=== PATIENT | female | born 2000 | race African-American/Black ===

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

== ENCOUNTER 2018-05-30 16:32 | Outpatient (CLI) | payer MEDICAID ==
[2017-08-02 08:02] VITALS: BMI 28.4
[2018-05-30 17:57] LABS: BASOPHILS 0.1 % (0-2); EOSINOPHILS 1.1 % (0-7); HEMATOCRIT 30.1 % (36.0-48.0); IMMATURE GRANULOCYTES 0.2 % (0-5); LYMPHOCYTES 14.9 % (15-50); MCH 28.3 pg (26.0-34.0); MCHC 33.2 g/dL (31.0-37.0); MCV 85.3 fL (80.0-100.0); NEUTROPHILS 76.7 % (40-80); PLATELET COUNT 138 10x3/uL (130-400); RBC 3.53 10x6/uL (4.00-5.40); RDW 13.9 % (11.5-14.5); WBC 8.1 10x3/uL (4.8-10.8)
[2018-05-30 18:17] LABS: APPEARANCE CLEAR (CLEAR); BILIRUBIN NEGATIVE (NEGATIVE); COLOR YELLOW (YELLOW); GLUCOSE NEGATIVE (NEGATIVE); KETONE NEGATIVE (NEGATIVE); NITRITE NEGATIVE (NEGATIVE); PROTEIN NEGATIVE (NEGATIVE); UROBILINOGEN NORMAL (NORMAL)
[2018-05-30 18:28] LABS: ALBUMIN 2.5 g/dL (3.4-5.0); ALKALINE PHOSPHATASE 55 U/L (46-116); ALT (SGPT) 13 U/L (10-68); BILIRUBIN - TOTAL 0.17 mg/dL (0.2-1.3); CALC OSMOLALITY 271 mosm/kg (275-300); CARBON DIOXIDE 23.8 mmol/L (21.0-32.0); CHLORIDE - SERUM 106 mmol/L (98-107); CREATININE - SERUM 0.6 mg/dL (0.6-1.3); GLUCOSE 80 mg/dL (74-106); POTASSIUM - SERUM 3.4 mmol/L (3.5-5.1); PROTEIN - SERUM 6.3 g/dL (6.4-8.2); SODIUM 138 mmol/L (136-145); UREA NITROGEN 5 mg/dL (7-18); eGFR NON AFRICAN AMERICAN > 90 mL/min (90-120)
== END 2018-05-30 19:18 | disposition home or self-care (01) ==
LOC: D.LDO 16:32
PROVIDERS: Obstetrics & Gynecology
DX: O60.12X0 Preterm labor second trimester with preterm delivery second trimester, not applicable or unspecified (principal); Z3A.20 20 weeks gestation of pregnancy; Z37.1 Single stillbirth

== ENCOUNTER 2018-08-06 19:21 | Inpatient (IN) | payer MEDICAID ==
[~2018-08-06] VITALS: Ht 160 cm; Wt 84.4 kg
[2018-08-06 20:43] LABS: APPEARANCE CLEAR (CLEAR); COLOR YELLOW (YELLOW)
[2018-08-06 20:44] LABS: BILIRUBIN NEGATIVE (NEGATIVE); GLUCOSE NEGATIVE (NEGATIVE); KETONE NEGATIVE (NEGATIVE); NITRITE NEGATIVE (NEGATIVE); PROTEIN NEGATIVE (NEGATIVE); UROBILINOGEN NORMAL (NORMAL)
[2018-08-06 22:51] LABS: HEMATOCRIT 29.5 % (36.0-48.0); HEMOGLOBIN 9.6 g/dL (12-16); MCH 27.3 pg (26.0-34.0); MCHC 32.5 g/dL (31.0-37.0); MCV 83.8 fL (80.0-100.0); MEAN PLATELET VOLUME 10.5 fL (7.4-10.4); RBC 3.52 10x6/uL (4.00-5.40); RDW 13.2 % (11.5-14.5); WBC 7.4 10x3/uL (4.8-10.8)
[2018-08-06 23:16] VITALS: BP 111/65; Ht 160 cm; Wt 84.4 kg
[2018-08-07] VITALS (22 sets, daily range): BP systolic 94–128; BP diastolic 50–69
[2018-08-07 00:24] LABS: UDS - AMPHET NEGATIVE QUAL (NEGATIVE); UDS - BARB NEGATIVE QUAL (NEGATIVE); UDS - BENZO NEGATIVE QUAL (NEGATIVE); UDS - COCAINE NEGATIVE QUAL (NEGATIVE); UDS - OPIATE NEGATIVE QUAL (NEGATIVE); UDS - PCP NEGATIVE QUAL (NEGATIVE); UDS - THC NEGATIVE QUAL (NEGATIVE)
[2018-08-08 04:10] VITALS: BP 95/62
[2018-08-08 06:42] LABS: BASOPHILS 0.1 % (0-2); EOSINOPHILS 0.8 % (0-7); HEMOGLOBIN 7.8 g/dL (12-16); IMMATURE GRANULOCYTES 0.3 % (0-5); LYMPHOCYTES 13.5 % (15-50); MCHC 32.5 g/dL (31.0-37.0); MEAN PLATELET VOLUME 10.4 fL (7.4-10.4); MONOCYTES 5.8 % (2-11); NEUTROPHILS 79.5 % (40-80); PLATELET COUNT 195 10x3/uL (130-400); RBC 2.89 10x6/uL (4.00-5.40); RDW 13.2 % (11.5-14.5)
[2018-08-08 06:44] LABS: WBC 10.1 10x3/uL (4.8-10.8)
[2018-08-08 07:32] LABS: RAPID PLASMA REAGIN Non Reactive (Non Reactive)
[2018-08-08 07:45] VITALS: BP 102/57
[2018-08-08 14:36] VITALS: BP 104/56
[2018-08-08 19:29] VITALS: BP 104/58
[2018-08-09] VITALS: BP 100/61
[2018-08-09 07:40] VITALS: BP 103/53
[2018-08-09] MEDS ORDERED: IBUPROFEN800 MG PO (09:15)
[2018-08-09] MEDS ORDERED: PERCOCET 5-3251 TAB PO (09:15)
[2018-08-09] MEDS ORDERED: FERROUS SULFAT325 MG PO (09:16)
== END 2018-08-09 14:05 | disposition home or self-care (01) | DRG 788 ==
LOC: D.LDO 19:21 → D.LD 22:33 → D.WS 08-07 16:40
PROVIDERS: Obstetrics & Gynecology
PROC: 10D00Z1 Extraction of Products of Conception, Low, Open Approach (ICD-10-PCS; principal; 2018-08-07)
DX: O32.1XX0 Maternal care for breech presentation, not applicable or unspecified (principal); Z3A.37 37 weeks gestation of pregnancy; Z37.0 Single live birth; N83.8 Other noninflammatory disorders of ovary, fallopian tube and broad ligament; O34.219 Maternal care for unspecified type scar from previous cesarean delivery; O99.02 Anemia complicating childbirth

== ENCOUNTER 2019-10-09 14:10 | Outpatient (CLI) | payer MEDICAID ==
[2018-08-06 23:16] VITALS: BMI 33.0
[~2019-10-09 14:10] MED LIST changes: +FERROUS SULFAT325 MG PO; +IBUPROFEN800 MG PO; +PERCOCET 5-3251 TAB PO
[2019-10-09 15:28] LABS: APPEARANCE CLEAR (CLEAR); BILIRUBIN NEGATIVE (NEGATIVE); COLOR YELLOW (YELLOW); GLUCOSE NEGATIVE (NEGATIVE); KETONE NEGATIVE (NEGATIVE); NITRITE NEGATIVE (NEGATIVE); PROTEIN NEGATIVE (NEGATIVE); UROBILINOGEN NORMAL (NORMAL)
== END 2019-10-09 21:16 | disposition home or self-care (01) ==
LOC: D.LDO 14:10
PROVIDERS: ATTEND Obstetrics & Gynecology
DX: O26.899 Other specified pregnancy related conditions, unspecified trimester (principal); Z3A.00 Weeks of gestation of pregnancy not specified; R10.9 Unspecified abdominal pain

== ENCOUNTER 2019-11-27 10:04 | Inpatient (IN) | payer MEDICAID ==
[~2019-11-27] VITALS: Ht 160 cm; Wt 89.4 kg
[~2019-11-27 10:04] MED LIST changes: +TAMIFLU75 MG PO; +ZOFRAN4 MG PO
[2019-11-27 11:02] LABS: HEMATOCRIT 28.3 % (36.0-48.0); HEMOGLOBIN 8.8 g/dL (12-16); MCH 24.6 pg (26.0-34.0); MCHC 31.1 g/dL (31.0-37.0); MCV 79.3 fL (80.0-100.0); MEAN PLATELET VOLUME 9.5 fL (7.4-10.4); RBC 3.57 10x6/uL (4.00-5.40); RDW 14.6 % (11.5-14.5); WBC 7.4 10x3/uL (4.8-10.8)
[2019-11-27 11:18] VITALS: BP 130/62; Ht 160 cm; Wt 89.4 kg
--- NOTE | 2019-11-27 16:00 | NUR ---
RECEIVED PT FROM VIA BED TO ROOM 1219. BED LOCKED AND PLACED IN LOW POSITION. PT C/O PAIN, MOVING ABOUT IN BED. FUNDUS FIRM AT U/1. RUBRA LOCHIA MOD AMT. FEW DIME SIZED CLOTS NOTED ON PERIPAD. NO HEAVY ACTIVE BLEEDING NOTED AT THIS TIME. PERIPADS CHANGED. ABDOMINAL DRESSING DRY WITHOUT DRAINAGE NOTED. PT STATES PAIN OF "8" ON 0-10 PAIN SCALE. URVASHI GARCIA, RECOVERY NURSE CONTINUES AT BEDSIDE. GIVES PT DEMEROL 25 MG IVP AT THIS TIME. PT ENCOURAGED TO RELAX PT ON ELBOWS IN BED, TENSING UP. SR UP X 2. CALL LIGHT IN REACH.
--- NOTE | 2019-11-27 16:13 | NUR ---
DILAUDID NIBBLER OPERATOR STARTED ORDERED. PT INSTRUCTED ON USE OF BUTTON AND MEDICATION. VERBALIZES AND DEMONSTRATES UNDERSTANDING.
[2019-11-27 16:22] VITALS: BP 130/75
--- NOTE | 2019-11-27 16:22 | NUR ---
THIS NURSE ASSUMES CARE OF PT AT THIS TIME. PT STATES PAIN CONTINUES. PT MORE RELAXED AND NOT TENSING UP ON ELBOWS IN BED. VSS. HRRR WITHOUT AUDIBLE MURMUR. BBS CLEAR. BS HYPOACTIVE. ABDOMEN SOFT/DISTENDED PT BREATHING WITH PAIN. ABDOMINAL DRESSING DRY WITHOUT DRAINAGE. PT STATES LEGS CONTNUE NUMB. FUNDUS FIRM AT U/1. RUBRA LOCHIA SMALL AMT. SEVERAL SMALL DIME SIZED CLOTS NOTED ON PERIPAD. CHUX AND PERIPADS CHANGED X 2 ASSISTS. SCDS ON BLE. PUMP ON. SAGASTUME TO GRAVITY DRAINING DARK, YELLOW URINE. PIV SITE CLEAR TO LEFT WRIST. NS WITH PITOCIN AT 125 ML/HR. PT PRESSES METAL TANK BUILDER BUTTON AND LIES BACK IN BED. PT MORE CALM AT THIS TIME. SR UP X 2. CALL LIGHT IN REACH.
[2019-11-27 17:00] VITALS: BP 136/77
[2019-11-27 17:30] VITALS: BP 135/82
--- NOTE | 2019-11-27 17:39 | NUR ---
PT ON PHONE WITH FAMILY. TALKING, SMILING. REPOSITIONS PER SELF UP IN BED. CLEAR LIQUID DIET SERVED.
[2019-11-27 18:00] VITALS: BP 120/75
--- NOTE | 2019-11-27 18:00 | NUR ---
FUNDUS FIRM AT U/2. RUBRA LOCHIA MOD AMT. NO CLOTS NOTED. PERIPADS CHANGED. PT MOVES WELL IN BED PER SELF. FRESH ICE PACK TO INCISION. NO DRAINAGE NOTED TO DRESSING. I/O COMPLETED.
--- NOTE | 2019-11-27 18:27 | NUR ---
PT C/O INCISIONAL PAIN OF "5" ON 0-10 PAIN SCALE. TORADOL 30 MG GIVEN SIVP OVER 2 MINUTES. PT INSTRUCTED ON MED. VERBALIZES UNDERSTANDING.
--- NOTE | 2019-11-27 19:30 | NUR ---
REPORT TAKEN FROM SOCO. PT IS DOING WELL AT THIS TIME. EXPLAINED THAT I WOULD BE IN TO DO ASSESSMENT LATER.
[2019-11-27 20:00] VITALS: BP 121/67
--- NOTE | 2019-11-27 20:00 | NUR ---
PT IS DOING WELL. SHE HAS SM TO MOD LOCHIA AT THIS TIME. SHE HAS NO C/O AT THIS TIME. HEART SOUNDS WNL. LUNGS ARE CLEAR, BOWEL SOUNDS FAINT, FUNDUS FIRM. SHE HAS AN IV IN THE LEFT HAND INFUSING WELL. BABY IS IN THE ROOM AT THIS TIME. SHE IS WORKING ON BREAST FEEDING. SKIN IS WARM AND DRY. INCISION BANDAGE IS INTACT WITH NO DRAINAGED NOTED. PT HAS A SAGASTUME CATHETER DRAINING CONCENTRATED URINE. PT ENCOURAGED TO DRING FLUIDS. FOB IN THE ROOM. VS STABLE.
[2019-11-27 20:47] LABS: BASOPHILS 0.1 % (0-2); EOSINOPHILS 0.1 % (0-7); HEMATOCRIT 33.5 % (36.0-48.0); HEMOGLOBIN 10.5 g/dL (12-16); IMMATURE GRANULOCYTES 0.2 % (0-5); LYMPHOCYTES 9.4 % (15-50); MCH 25.2 pg (26.0-34.0); MCHC 31.3 g/dL (31.0-37.0); MCV 80.5 fL (80.0-100.0); MEAN PLATELET VOLUME 10.4 fL (7.4-10.4); MONOCYTES 5.6 % (2-11); NEUTROPHILS 84.6 % (40-80); PLATELET COUNT 173 10x3/uL (130-400); RBC 4.16 10x6/uL (4.00-5.40); RDW 14.5 % (11.5-14.5)
[2019-11-27 20:55] LABS: WBC 11.5 10x3/uL (4.8-10.8)
--- NOTE | 2019-11-27 22:00 | NUR ---
PT IS RESTING QUIETLY HOLDING BABY. SHE HAS NO C/O. SAGASTUME CONT TO DRAIN WELL.
[2019-11-28] VITALS: BP 117/68
--- NOTE | 2019-11-28 00:10 | NUR ---
PT IS DOING WELL. STILL HAS BABY. NO C/O. SUGGESTED TO PT THAT SHE MAY WANT TO REST WHILE THE BABY WAS SLEEPING INSTEAD OF BEING ON THE PHONE. FOB IN THE ROOM SLEEPING.
--- NOTE | 2019-11-28 02:15 | NUR ---
PT CONT' TO REST. NO C/O AT THIS TIME. PADS CHANGED. LOCHIA MOD AMT.
--- NOTE | 2019-11-28 04:00 | NUR ---
VS TAKEN. NO C/O USING INVESTIGATION CLERK PUMP FREQUESTLY.
[2019-11-28 06:37] LABS: BASOPHILS 0 % (0-2); EOSINOPHILS 0.2 % (0-7); HEMATOCRIT 30.3 % (36.0-48.0); HEMOGLOBIN 9.5 g/dL (12-16); IMMATURE GRANULOCYTES 0.1 % (0-5); LYMPHOCYTES 7.8 % (15-50); MCH 24.7 pg (26.0-34.0); MCHC 31.4 g/dL (31.0-37.0); MCV 78.9 fL (80.0-100.0); MEAN PLATELET VOLUME 9.3 fL (7.4-10.4); MONOCYTES 4.5 % (2-11); NEUTROPHILS 87.4 % (40-80); PLATELET COUNT 145 10x3/uL (130-400); RBC 3.84 10x6/uL (4.00-5.40); RDW 14.6 % (11.5-14.5); WBC 9.5 10x3/uL (4.8-10.8)
[2019-11-28 07:13] LABS: RAPID PLASMA REAGIN Non Reactive (Non Reactive)
--- NOTE | 2019-11-28 07:30 | NUR ---
DR. HERBERT ON UNIT, MD TO ROOM TO SPEAK WITH PT. VERBAL ORDER RECEIVED TO Devan/C SANDRITA SAGASTUME IV, MAY ADVANCE DIET, AND START PO PAIN MEDICATION.
[2019-11-28 10:00] VITALS: BP 114/62
--- NOTE | 2019-11-28 10:00 | NUR ---
TO PT'S ROOM, SAGASTUME CATH DC'D INTACT WITH 900 ML'S EMPTIED OUT OF SAGASTUME BAG, DARK YELLOW URINE. PERICARE DONE WITH WARM WET WASHCLOTHS, LEFT LABIA MAJORA NOTED TO HAVE MINIMAL SWELLING, INTACT. CHUX CHANGED. PT ALSO GIVEN TORADOL 30 MG SIVP, DILUTED WITH 10 CC'S NS. SEE EMAR FOR ALL MEDS ADM BY THIS RN. PT SERVED LARGE GLASS OF ICE WATER. DENIES ALL OTHER NEEDS. SRUP X2, CALL LIGHT AND PHONE WITHIN REACH. SIG OTHER AT BEDSIDE.
--- NOTE | 2019-11-28 13:15 | NUR ---
TO PT'S ROOM, PT IS SITTING UP IN THE BED, WANTS BABY TO BE SWADDLED IN CRIB. PT STATES SHE DOES FEEL MUCH BETTER, RATING PAIN NOW 3/10, TO INCISION/CRAMPING. ABDOMEN SOFT, INCISION REMAINS C/D/I. PT SERVED LARGE GLASS OF CRANBERRY JUICE, SRUP X2, CALL LIGHT AND PHONE WITHIN REACH.
--- NOTE | 2019-11-28 16:00 | NUR ---
TO PT'S ROOM, PT WISHES TO GET UP TO THE BATHROOM TO PEE. SWADDLED X 2, AND PLACED IN CRIB, NO DISTRESS NOTED. PT'S IV SL, AND THEN ASSISTED TO BR, GAIT SLOW AND STEADY. PT VOIDS 250 MLS, PERICARE DONE WITH WARM WET PERIBOTTLE, AND WARM WET WASHCLOTHS. PERIPADS/PANTIES ON. CLEAN GOWN ON. BED LINENS CHANGED WHILE PT IS IN BR. PT THEN BACK TO BED. PT DENIES ALL NEEDS AT THIS TIME. SRUP X2, CALL LIGHT AND PHONE WITHIN REACH.
--- NOTE | 2019-11-28 17:00 | NUR ---
PT SITTING UP IN THE BED, EATING REGULAR SUPPER TRAY SERVED BY DIETARY. LARGE MUG OF ICE WATER SERVED TO PT. PT REQUESTS TO TAKE PAIN MEDICATION NOW. SEEE EMAR FOR ALL MEDS ADM BY THIS RN. PT DENEIS ALL OTHER NEEDS. SLEEPING IN CRIB, NO DISTRESS NOTED. SRUP X 2, CALL LIGHT AND PHONE WITHIN REACH.
--- NOTE | 2019-11-28 19:15 | NUR ---
REPORT GIVEN TO 7 P SHIFT.
--- NOTE | 2019-11-28 19:30 | NUR ---
REPORT GIVEN BY ANGIE. LANDIN
[2019-11-28 20:00] VITALS: BP 134/72
--- NOTE | 2019-11-28 20:15 | NUR ---
ROUNDS MAKE. PT IS SITTING UP IN HER BED. SHE IS UPSET B/C SHE IS COUGHING UP THIN CLEAR SPUTUM. I HAD HER USE THE "IS" TO HELP BRING UP MUCUS. SHE DOES NOT LIKE TO COUGH B/D IT HURST HER INCISION. I ASKED HER TO DRINK A LOT OF FLUIDS AND TO USE HER IS EVERY WAKING HOUR. SHE AGREED. PT FATHER IS HER FROM [facility] TO VISIT. PT FATHER WALKED WITH PT OUT IN THE HALLS. HEART SOUNDS ARE WNL. LUNGS CLEAR, BOWEL SOUNDS HEARD. SKIN IS WARM AND DRY. INCISION IS CLEAN AND DRY WITH DRESSING INTACT. PT IS VOIDING WELL. HER FUNDUS IS FIRM. LOCHIA IS SMALL PER PT. PT IS IN AND OUT OF THE ROOM.
--- NOTE | 2019-11-28 22:00 | NUR ---
PT RESTING QUIETLY IN BED. NO NEW C/0
--- NOTE | 2019-11-28 23:00 | NUR ---
PT CALLED THIS RN TO CALL THE NURSERY NURSE FOR HER. BABY IN NURSERY NOW. PT WAS ENCOURAGED TO REST WHILE THE BABY WAS OUT OF THE ROOM.
[2019-11-29] VITALS: BP 106/64
--- NOTE | 2019-11-29 | NUR ---
VS TAKEN AND RECORDED. PT TRYING TO REST. NO C/O.
[2019-11-29 04:00] VITALS: BP 110/68
--- NOTE | 2019-11-29 04:00 | NUR ---
RIGHT HAND SALINE LOCKED. PT HAS NO C/O AT THIS TIME.
--- NOTE | 2019-11-29 05:27 | NUR ---
PT HAD AN EPISODE OF NAUSEA, WEAKNESS AND PAIN. NURSERY NURSE STATES SHE WAS SHAKING. SHE WAS GIVEN 4MG ZOFRAN AND WAS GIVEN GRHAM CRACKERS TO EAT. PERCOCET WAS THEN GIVEN FOR PAIN. SHE IS RESTING IN BED WITH HER BABY AT THIS TIME. NURSERY NURSE STILL IN ROOM WITH PT.
--- NOTE | 2019-11-29 06:36 | NUR ---
BABY TAKEN BACK TO NURSERY B/C PT IS TOO SLEEPY TO FEED HER. SHE GAVE PERMISSION FOR THE BABY TO HAVE A BOTTLE. PT HAS NO NAUSEA OR PAIN AT THIS TIME.
[2019-11-29 08:30] VITALS: BP 118/67
--- NOTE | 2019-11-29 08:30 | NUR ---
RECEIVED PT SITTING UP IN BED. AAO X 3. VSS. HRRR WITHOUT AUDIBLE MURMUR. BBS CLEAR. BS X 4. ABDOMEN SOFT/NON-DISTENDED. FUNDUS FIRM AT U/2. RUBRA LOCHIA SMALL AMT. NO CLOTS NOTED. PT DENIES HEAVY BLEEDING OR PASSING CLOTS. NEG HOMANS' SIGN. PPP. NO EDEMA NOTED TO BLE. SL TO LEFT WRIST SITE CLEAR. PT C/O GAS PAIN OF "5" ON 0-10 PAIN SCALE. MOTRIN 600 MG GIVEN PO ORDERED. PT ALSO GIVEN MYLICON 80 MG PO ORDERED. PT INSTRUCTED ON MEDS. VERBALIZES UNDERSTANDING. PT PROVIDED ICE WATER AT THIS TIME.
--- NOTE | 2019-11-29 09:15 | NUR ---
DR HERBERT VISITS WITH PT. NO ORDERS RECEIVED.
--- NOTE | 2019-11-29 09:48 | NUR ---
PT AMBULATORY IN HALLS AT THIS TIME.
--- NOTE | 2019-11-29 09:55 | NUR ---
PT IN [place], ON PHONE WITH MOTHER, TEARFUL. WHEELCHAIR PROVIDED TO PT PER Terrie ERWIN LPN. PT RETURNS TO ROOM. PT STATES "I WANT TO GO IN THE BATHROOM AND TRY TO GET SOME OF THIS GAS TO PASS". PT AMBULATES WITH STEADY GAIT TO BR.
--- NOTE | 2019-11-29 10:00 | NUR ---
PT IN BATHROOM. STATES WILL TRY AND SHOWER. SHOWER ON AND PREPARED FOR PT. LINENS AND TOILETRIES PROVIDED.
--- NOTE | 2019-11-29 10:26 | NUR ---
PT FINISHED WITH SHOWER. ASSISTED WITH PANTIES AND PAD. PT TO BED. C/O ABDOMINAL PAIN OF "7" ON 0-10 PAIN SCALE. PERCOCET 10/325 GIVEN PO ORDERED. PT ALSO GIVEN DULCOLAX SUPPOSITORY 10 MG RECTALLY. INSTRUCTED PT TO HOLD IN FOR AT LEAST 20 MINUTES TO GIVE IT TIME TO WORK. PT VERBALIZES UNDERSTANDING.
--- NOTE | 2019-11-29 11:05 | NUR ---
PT SITTING UP IN BED. STATES FEELING BETTER. STATES HASN'T BEEN TO BR OR PASSED GAS SINCE SUPPOSITORY. DENIES NEEDS OR C/O
--- NOTE | 2019-11-29 12:30 | NUR ---
PT SITTING UP IN BED CONSUMING REG DIET. TOLERATING WELL. DENIES NAUSEA OR C/O.
[2019-11-29] MEDS ORDERED: HYDROCODON-ACE1 EA10 PO (14:03)
[2019-11-29] MEDS ORDERED: MOTRIN600 MG PO (14:03)
--- NOTE | 2019-11-29 14:17 | NUR ---
PT UP TO BR AT THIS TIME.
--- NOTE | 2019-11-29 14:25 | NUR ---
PT AMBULATORY IN ROOM. MOVING WELL, IMPROVED FROM THIS AM. PT STATES FEELING BETTER. STATES PASSED "A LITTLE GAS".
--- NOTE | 2019-11-29 14:27 | NUR ---
PT C/O ABDOMINAL/INCISIONAL/GAS PAIN OF "5" ON 0-10 PAIN SCALE. PERCOCET 10/325 AND MOTRIN 600 MG GIVEN PO ORDERED. PT INSTRUCTED ON MEDS. VERBALIZES UNDERSTANDING.
--- NOTE | 2019-11-29 14:41 | NUR ---
DR HERBERT GIVEN STATUS UPDATE; INFANT BEING DISCHARGED. ORDER RECEIVED TO DC HOME.
--- NOTE | 2019-11-29 15:00 | NUR ---
DISCHARGE INSTRUCTIONS GIVEN TO PT. PT VERBALIZES UNDERSTANDING OF ALL INSTRUCTIONS. COPIES GIVEN TO PT. PT GIVEN RX FOR NORCO AND MOTRIN. SL DC'D WITH CATHELON INTACT. PRESSURE BANDAGE TO SITE. PT PREPARES FOR DISCHARGE.
--- NOTE | 2019-11-29 16:05 | NUR ---
PT READY FOR DISCHARGE. DISCHARGED IN STABLE CONDITION WITH VIA WHEELCHAIR PER AUXILIARY STAFF TO PRIVATE VEHICLE.
== END 2019-11-29 16:05 | disposition home or self-care (01) | DRG 785 ==
LOC: D.WS 10:04 → D.LD 10:04 → D.WS 15:55
PROVIDERS: ADMIT Obstetrics & Gynecology; ATTEND Obstetrics & Gynecology
PROC: 10D00Z1 Extraction of Products of Conception, Low, Open Approach (ICD-10-PCS; principal; 2019-11-27)
PROC: 0UB70ZZ Excision of Bilateral Fallopian Tubes, Open Approach (ICD-10-PCS; 2019-11-27)
DX: O64.1XX0 Obstructed labor due to breech presentation, not applicable or unspecified (principal); Z37.0 Single live birth; Z3A.39 39 weeks gestation of pregnancy; Z30.2 Encounter for sterilization; O34.219 Maternal care for unspecified type scar from previous cesarean delivery

== ENCOUNTER 2021-02-12 00:04 | Emergency (ER) | payer OTHER ==
[~2021-02-12] VITALS: Ht 160 cm; Wt 80.0 kg
[~2021-02-12 00:04] MED LIST changes: +HYDROCODON-ACE1 EA10 PO; +MOTRIN600 MG PO
[2021-02-12 00:08] VITALS: Ht 160 cm; Wt 80.0 kg
[2021-02-12 00:46] LABS: CALC OSMOLALITY 280 mosm/kg (275-300); CALCIUM 8.9 mg/dL (8.5-10.1); CARBON DIOXIDE 29.5 mmol/L (21.0-32.0); CHLORIDE - SERUM 102 mmol/L (98-107); CREATININE - SERUM 0.8 mg/dL (0.6-1.3); GLUCOSE 87 mg/dL (74-106); POTASSIUM - SERUM 3.6 mmol/L (3.5-5.1); SODIUM 141 mmol/L (136-145); UREA NITROGEN 14 mg/dL (7-18); eGFR NON AFRICAN AMERICAN > 90 mL/min (90-120)
[2021-02-12 00:48] LABS: HCG URINE NEGATIVE (NEGATIVE)
[2021-02-12 00:48] LABS: BASOPHILS 0.2 % (0-2); EOSINOPHILS 2.9 % (0-7); HEMOGLOBIN 12.2 g/dL (12-16); IMMATURE GRANULOCYTES 0.2 % (0-5); LYMPHOCYTE ABS# 2.07 10x3/uL (1.18-3.74); LYMPHOCYTES 21.3 % (15-50); MCH 26.6 pg (26.0-34.0); MCHC 32.1 g/dL (31.0-37.0); MCV 82.8 fL (80.0-100.0); MEAN PLATELET VOLUME 10.7 fL (7.4-10.4); MONOCYTES 5.4 % (2-11); PLATELET COUNT 280 10x3/uL (130-400); RBC 4.59 10x6/uL (4.00-5.40); RDW 13.2 % (11.5-14.5); WBC 9.7 10x3/uL (4.8-10.8)
[2021-02-12 00:53] LABS: ALBUMIN 4.1 g/dL (3.4-5.0); ALKALINE PHOSPHATASE 55 U/L (30-120); ALT (SGPT) 21 U/L (10-68); BILIRUBIN - TOTAL 0.33 mg/dL (0.2-1.3)
[2021-02-12 00:56] LABS: BILIRUBIN NEGATIVE (NEGATIVE); KETONE NEGATIVE (NEGATIVE); NITRITE NEGATIVE (NEGATIVE); UROBILINOGEN NORMAL mg/dL (< 2)
[2021-02-12 00:58] LABS: BACTERIA MANY HPF (NONE SEEN); SQUAMOUS EPITHELIAL 0-5 HPF (0-4)
[2021-02-12] MEDS ORDERED: CIPRO500 MG PO (03:47)
[2021-02-12 03:59] VITALS: BP 116/76
== END 2021-02-12 04:11 | disposition other institution (70) ==
LOC: D.ER 00:04
PROVIDERS: Family Medicine
DX: N30.90 Cystitis, unspecified without hematuria (principal); R10.31 Right lower quadrant pain